=== PATIENT | female | born 1955 | race Caucasian/White ===

== ENCOUNTER 2022-01-14 21:05 | Emergency (ER) | payer OTHER, SELFPAY ==
[2022-01-14] VITALS (13 sets, daily range): BP systolic 104–128; BP diastolic 78–88; PULSE 99–107; RESP 14–23; TEMP 36.7; O2SAT 94–99
--- NOTE | ~2022-01-14 | XR_ITS ---
EXAM: XR knee LT min 4V DATE: HISTORY: pain. SHE WAS KNEELING AND IT FELT LIKE HER KNEE POPPED OUT . COMPARISON: None available. FINDINGS: Left total knee arthroplasty, without hardware fracture or hardware lucency. Decreased min eralization. No osseous fracture. The knee is held in varus alignment in one frontal view. Posterior translation of the tibia and tibial components relative to the distal femur and femoral components in the lateral view. No lytic or blastic lesion. No erosion or periosteal change. Soft tissues within n ormal limits. Moderate volume joint fluid. IMPRESSION: No osseous or hardware fracture. Likely posterior dislocation of the tibia and tibial com ponents relative to the distal femur and femoral components. Reviewed, dictated and finalized at location [facility]. [employer] IMPRESSION: No osseous or hardware fracture. Likely posterior dislocation of th e tibia and tibial components relative to the distal femur and femoral componen ts.
--- NOTE | ~2022-01-14 | XR_ITS ---
XR knee LT 3V 01/14/2022 23:59 Indication: Post reduction left knee Procedure: 2 views left knee Comparison: 01/14/2022 Findings: There is a left total knee arthroplasty. There is anatomic alignment post reduction. No und erlying fracture. No significant joint effusion. Impression: 1: Anatomic alignment of the left knee post reduction. No fracture. Reviewed, dictated and finalized at location [facility]. [facility] Impression: 1: Anatomic alignment of the left knee post reduction. No fracture.
--- NOTE | 2022-01-14 22:18 | ED.GENADULT ---
HPI - General Adult General Chief complaint: Extremity Injury, Lower Stated complaint: left knee pain Time Seen by Provider: 01/14/22 21:41 History of Present Illness HPI narrative: 66-year-old female presenting to the emergency department for evaluation after kneeling on her left knee when she felt a dislocation. Patient did have a total knee arthroplasty done in 2013 at [place]. Patient reports increased pain with range of motion. Patient arrived to the emergency room via EMS. Patient denies any other pain or injury. Related Data Home Medications Medication Instructions Recorded Confirmed apple cider vinegar 600 mg capsule 600 mg PO DAILY 04/12/19 04/12/19 ferrous sulfate 325 mg (65 mg 325 mg PO DAILY 04/12/19 04/12/19 iron) tablet multivitamin 1 tablet PO DAILY 04/12/19 04/12/19 omega 0-otz-uwj-fish oil 1,000 mg 1 cap PO DAILY 04/12/19 04/12/19 (120 mg-180 mg) capsule (Fish Oil) valacyclovir 500 mg tablet 500 mg PO DAILY 04/12/19 04/12/19 Allergies Allergy/AdvReac Type Severity Reaction Status Date / Time NKDA Allergy Mild Uncoded 04/12/19 14:50 Review of Systems Review of Systems: CONSTITUTIONAL: Denies fever, chills, or sweats. EYES: Denies visual changes, redness, or discharge. ENT: Denies rhinorrhea, congestion, sore throat, or otalgia. CARDIOVASCULAR: Denies chest pain, palpitations, or edema. RESPIRATORY: Denies cough or dyspnea. GASTROINTESTINAL: Denies abdominal pain, nausea, vomiting, or diarrhea. GENITOURINARY: Denies dysuria or hematuria. SKIN: Denies rash or itching. MUSCULOSKELETAL: See HPI NEUROLOGIC: Denies headache, numbness, or weakness. PSYCHIATRIC: Denies anxiety or depression. Exam Narrative: APPEARANCE: Well appearing, no pain, no distress, well-nourished. HEAD: normocephalic, atraumatic. EYES: PERRLA/EOMI, conjunctivae clear. NOSE: Normal no drainage EARS:TMS clear with good light reflex. THROAT: Pharynx clear, no exudate. NECK: Supple. No adenopathy, no masses. RESPIRATORY: Airway patent, respirations nonlabored. Clear to auscultation bilaterally, no rales, rhonchi, wheezing. CARDIOVASCULAR: Regular rate and rhythm without murmurs rubs or gallops. ABDOMINAL: Soft, nontender, nondistended, normal bowel sounds MUSCULOSKELETAL: Left knee tenderness. Neurovascular intact NEURO: Alert. Cranial nerves II through XII intact. Grossly intact SKIN: Warm, dry. Normal Color Course Course Emergency Course: Case was discussed with Dr. Aparicio the orthopedist on-call. He was comfortable to plan for reduction of the dislocation. With this type of dislocation he felt the patient did not need any vascular studies as long as the patient was neurovascularly intact. Reduction was performed under propofol and as documented in the procedure note. No issues with the reduction. Anatomic alignment of the knee was achieved with reduction. Patient was placed in a knee immobilizer and encouraged of close follow-up with orthopedics. Patient family are comfortable with the plan for discharge and close follow-up. Vital Signs Vital signs: Vital Signs Temperature 98.0 F 01/14/22 21:07 Pulse Rate 100 01/14/22 21:07 Respiratory Rate 16 01/14/22 21:07 Blood Pressure 117/81 01/14/22 21:07 Pulse Oximetry 97 01/14/22 21:07 Oxygen Delivery Room Air 01/14/22 21:07 Temperature 98.0 F 01/14/22 21:07 Pulse Rate 98 01/15/22 01:06 Respiratory Rate 25 H 01/15/22 01:06 Blood Pressure 125/91 H 01/15/22 01:06 Pulse Oximetry 97 01/15/22 01:06 Oxygen Delivery Room Air 01/15/22 00:10 Oxygen Flow Rate 2 01/14/22 23:35 Procedures Orthopedic Joint Reduction Joint #1: Time Out Performed: Yes Side: left Joint Reduction Location: knee/patella Analgesia: procedural sedation Pre-Procedure Neuro Vascular Exam: normal Shoulder Technique Used (if applicable): traction/counter-traction and other (Flexion, distraction and then extension) Post
[2022-01-15] VITALS (20 sets, daily range): BP systolic 104–132; BP diastolic 75–100; PULSE 96–107; RESP 13–25; O2SAT 91–99
--- NOTE | 2022-01-15 21:13 | PC.NURSE ---
Medication was given at 2330
== END 2022-01-15 01:24 | disposition home or self-care (01) ==
PROVIDERS: Emergency Provider Emergency Medicine
DX: S83.105A Unspecified dislocation of left knee, initial encounter (principal); Z96.652 Presence of left artificial knee joint; X50.1XXA Overexertion from prolonged static or awkward postures, initial encounter
CPT/HCPCS: 27550; 73562; 73564; 99285; J7030

== ENCOUNTER 2022-06-24 06:26 | Day surgery (SDC) | payer OTHER, SELFPAY ==
[2022-05-22 15:11] VITALS: BMI 36.0
[2022-06-05 14:58] VITALS: BMI 35.9
[2022-06-24 06:53] VITALS: BMI 34.9
[2022-06-24 07:02] VITALS: BP 111/83; PULSE 93; RESP 18; TEMP 36.7; O2SAT 96
--- NOTE | 2022-06-24 07:10 | P.PNAN_ITS ---
Anes - Initial Pre Proc Eval Procedure: Operation Date: 06/24/22 08:00 Proposed Procedures p Diagnostic Colonoscopy - Jong Lopez MD Date/Time: 06/24/22 07:10 Surgeon: Jong Lopez MD Pre Op Diagnosis: History of Colon Polyps Patient Data Age: 67 Gender: F Height: 1.63 m Weight: 92.3 kg Last Vital Signs Temp 36.7 C 06/24/22 07:02 Pulse 93 06/24/22 07:02 Resp 18 06/24/22 07:02 BP 111/83 06/24/22 07:02 Pulse Ox 96 06/24/22 07:02 O2 Del Method Room Air 06/24/22 07:02 Allergies Allergy/AdvReac Type Severity Reaction Status Date / Time No Known Allergies Allergy Verified 06/24/22 06:52 Home Medications Medication Instructions Recorded Confirmed Type ferrous sulfate 325 mg (65 mg 325 mg PO DAILY 04/12/19 06/24/22 History iron) tablet multivitamin 1 tablet PO DAILY 04/12/19 06/24/22 History omega 2-nks-izg-fish oil 1,000 mg 1 cap PO DAILY 04/12/19 06/24/22 History (120 mg-180 mg) capsule (Fish Oil) valacyclovir 500 mg tablet 500 mg PO DAILY 04/12/19 06/24/22 History sodium,potassium,mag sulfates 17.5 See Rx Instructions PO .COMPLEX 05/22/22 Rx gram-3.13 gram-1.6 gram oral soln #354 mL (Suprep Bowel Prep Kit) Patient hx anesthesia problems: none Family hx anesthesia problems: none Results Review: All pre-operative results and documents have been reviewed as part of the pre- operative evaluation. [facility] Past Medical History Medical History (Updated 06/24/22 @ 07:19 by Zohaib Reed DO) Anemia Social History Social History Smoking status: Never smoker Alcohol intake: never Substance use type: does not use Living arrangements: with family Spiritual care concerns: No Anes - Eval Final PreProcedure Day of Procedure 06/24/22 07:10 Patient weight: obese Heart: regular rate and rhythm Lungs: clear to auscultation Airway: Mallampati scale class II Neurological: alert and oriented Last oral intake: >/= 8 hours ASA classification: II Emergent: no Anesthetic plan: proceed Anesthesia type and monitoring: general GIVS and standard monitoring Results Review: All pre-operative results and documents have been reviewed as part of the pre- operative evaluation. Informed Consent: The patient's anesthetic plan and its attendant risks and benefits were discussed with the patient/family/POA. Questions were solicited and answers provided to the satisfaction of the patient/family/POA.
[2022-06-24] MEDS: LACTATED RINGERS 1,000 ML 150 ML IV CONT (07:15)
--- NOTE | 2022-06-24 07:26 | P.HP_ITS ---
History of Present Illness History of Present Illness Consent: Risks, benefits, and alternatives have been discussed and questions answered. Patient agrees to proceed with procedure. Chief complaint: History of Colon Polyps Narrative: Taylor Reyes is a 67 year old female Presents for screening colonoscopy. Patient was found to have adenomatous colon polyp removed at the time of previous colonoscopy 2017 in [place]. Patient reports her current weight ap petite and bowel movements are normal. Patient denies abdominal pain. She has had no bleeding. Family history noncontributory. Review of Systems 2 Review of Systems: Review of systems noncontributory. [facility] Past Medical History Medical History (Updated 06/24/22 @ 07:27 by Jong Lopez MD) Anemia Social History Social History Smoking status: Never smoker Alcohol intake: never Substance use type: does not use Living arrangements: with family Spiritual care concerns: No Meds Home Medications and Allergies Home Medications Medication Instructions Recorded Confirmed Type ferrous sulfate 325 mg (65 mg 325 mg PO DAILY 04/12/19 06/24/22 History iron) tablet multivitamin 1 tablet PO DAILY 04/12/19 06/24/22 History omega 3-puc-cii-fish oil 1,000 mg 1 cap PO DAILY 04/12/19 06/24/22 History (120 mg-180 mg) capsule (Fish Oil) valacyclovir 500 mg tablet 500 mg PO DAILY 04/12/19 06/24/22 History sodium,potassium,mag sulfates 17.5 See Rx Instructions PO .COMPLEX 05/22/22 Rx gram-3.13 gram-1.6 gram oral soln #354 mL (Suprep Bowel Prep Kit) Allergies Allergy/AdvReac Type Severity Reaction Status Date / Time No Known Allergies Allergy Verified 06/24/22 06:52 Vital Signs Vital Signs - 24 hr 06/24/22 07:02 Temperature 98.0 F Pulse Rate 93 Respiratory Rate 18 Blood Pressure 111/83 Pulse Oximetry 96 Oxygen Delivery Room Air Exam Narrative: Physical exam reveals patient to be alert. Vital signs stable. HEENT exam is unremarkable. Patient is anicteric. Lungs are clear to auscultation and percussion. Heart is without murmur or extra sounds. Abdomen bowel sounds are present soft nontender with no organomegaly. Digital external rectal exam is normal. Assessment and Plan Assessment and plan (1) History of colon polyps: Code(s): Z86.010 - Personal history of colonic polyps Status: Acute Assessment and Plan: Patient has a history of colon polyps. Plan for surveillance colonoscopy at this time. Further recommendations will be given after endoscopy.
[2022-06-24 07:57] VITALS: BP 96/66; PULSE 74; RESP 18; O2SAT 96
[2022-06-24 08:07] VITALS: BP 97/70; PULSE 82; RESP 20; O2SAT 97
[2022-06-24 08:17] VITALS: BP 107/82; PULSE 71; RESP 20; O2SAT 100
--- NOTE | 2022-06-24 09:15 | WPDANESPN ---
Anes - Prog Note Post-Op Date/Time: 06/24/22 09:15 Cardiovascular status: normal Respiratory status: normal Airway patency: baseline Mental status: baseline Post-Op hydration status: normal Vital Signs: Last Vital Signs Temp 36.7 C 06/24/22 07:02 Pulse 71 06/24/22 08:17 Resp 20 06/24/22 08:17 BP 107/82 06/24/22 08:17 Pulse Ox 100 06/24/22 08:17 O2 Del Method Room Air 06/24/22 08:17 Pain Score (VAS): 0 I/O: Intake & Output 06/23/22 06/24/22 06/24/22 23:59 07:59 15:59 Intake Total 300 50 Balance 300 50 Post-procedural complaints: none Patient Feedback: Patient satisfied with anesthetic care. Other Findings: Patient vital signs back to baseline. Patient denies nausea and vomiting. Patient's pain under control. Patient OK for discharge.
== END 2022-06-24 08:30 | disposition home or self-care (01) ==
PROVIDERS: PCP Internal Medicine; Visit Provider Internal Medicine Gastroenterology
PROC: 0DJD8ZZ Inspection of Lower Intestinal Tract, Via Natural or Artificial Opening Endoscopic (ICD-10-PCS; CPT 45378; principal; 2022-06-24 08:00)
DX: Z86.010 Personal history of colon polyps (principal)
CPT/HCPCS: 45378